=== PATIENT | female | born 1990 | race Caucasian/White ===

== ENCOUNTER 2017-05-28 19:44 | Observation (INO) | payer MEDICAID ==
[~2017-05-28] VITALS: Ht 157.5 cm; Wt 54.0 kg
[2017-05-28 20:23] LABS: DAU SCREEN DISCLAIMER
== END 2017-05-28 23:00 | disposition home or self-care (01) ==
LOC: LDOP 19:44 → LDIP 21:30
PROVIDERS: ADMIT Obstetrics & Gynecology; ATTEND Obstetrics & Gynecology
DX: O62.9 Abnormality of forces of labor, unspecified (principal); Z3A.35 35 weeks gestation of pregnancy
CPT/HCPCS: 59025; 80307; 81003; 87081; 87086; G0378

== ENCOUNTER 2017-06-01 03:32 | Inpatient (IN) | payer MEDICAID ==
[~2017-06-01] VITALS: Ht 157.5 cm; Wt 54.5 kg
[2017-06-01 04:00] VITALS: BP 119/86
[2017-06-01 04:21] VITALS: BP 119/86
[2017-06-01 04:23] LABS: DAU SCREEN DISCLAIMER
[2017-06-01 05:23] LABS: HIV 1&2 ANTIBODY SCREEN Nonreactive (Nonreactive); HIV-1 p24 ANTIGEN Nonreactive (Nonreactive)
[2017-06-01] MEDS ORDERED: BETAMETHASONE 6 MG/ML, 5ML IM ONE (06:41)
[2017-06-01] MEDS: LACTATED RINGERS 1,000 ML IV SCH ×7 (06:45→22:37)
[2017-06-01] MEDS ORDERED: BETAMETHASONE 6 MG/ML, 5ML IM SCH (07:00)
[2017-06-01] MEDS ORDERED: METHADONE 10 MG TABLET ONE (07:58)
[2017-06-01] MEDS: METHADONE 5 MG TABLET PO SCH (08:00)
[2017-06-01] MEDS: METHADONE 10 MG TABLET PO SCH (08:03)
[2017-06-01] MEDS ORDERED: FENTANYL PF 100 MCG/2ML ONE (08:32)
[2017-06-01] MEDS ORDERED: LIDOCAINE 1%, 20ML ONE ×2 (08:33→09:05)
[2017-06-01] MEDS ORDERED: MISOPROSTOL 200 MCG TABLET ONE (08:33)
[2017-06-01] MEDS ORDERED: OXYTOCIN 30U/ 0.9% NaCL 500ML 500 ML IV ONE (08:44)
[2017-06-01] MEDS ORDERED: OXYTOCIN 30U/ 0.9% NaCL 500ML 500 ML ONE ×2 (08:58→21:07)
[2017-06-01] MEDS ORDERED: LACTATED RINGERS 1,000 ML IVBOLUS ONE (09:00)
[2017-06-01] MEDS ORDERED: FENTANYL PF 100 MCG/2ML IVPush PRN (09:00)
[2017-06-01] MEDS ORDERED: FENTANYL PF 100 MCG/2ML IV PRN (09:00)
[2017-06-01] MEDS ORDERED: FENTANYL/BUPIV./NS/PF 250 ML EPIDCONT ONE ×2 (09:00→09:05)
[2017-06-01] MEDS ORDERED: LIDOCAINE/PF 1.5%-EPI 1:200K, 30ML ONE (09:01)
[2017-06-01 09:32] VITALS: BP 126/71
[2017-06-01] MEDS ORDERED: FENTANYL/BUPIV./NS/PF 250 ML EPIDCONT SCH (09:53)
[2017-06-01] MEDS ORDERED: NALOXONE 0.4 MG/ML, 1ML IVPush PRN (10:00)
[2017-06-01] MEDS ORDERED: PREN1TAB60 PO (10:00)
[2017-06-01] MEDS ORDERED: LACTATED RINGERS 1,000 ML IVBOLUS PRN (10:00)
[2017-06-01] MEDS ORDERED: EPHEDRINE 50 MG/ML, 1ML IVPush PRN (10:00)
[2017-06-01] MEDS ORDERED: METH10OR PO (10:21)
[2017-06-01] MEDS ORDERED: NEWBORN KIT ONE (11:39)
[2017-06-01] MEDS ORDERED: OXYTOCIN 30U/ 0.9% NaCL 500ML 500 ML IV PRN (19:00)
[2017-06-01] MEDS ORDERED: IBUPROFEN 600 MG TABLET ONE (19:43)
[2017-06-01] MEDS ORDERED: ACETAMINOPHEN 325 MG TABLET PO PRN (20:30)
[2017-06-01] MEDS ORDERED: ONDANSETRON 2MG/ML, 2ML IV PRN (20:30)
[2017-06-01] MEDS: IBUPROFEN 600 MG TABLET PO PRN (20:30)
[2017-06-01] MEDS ORDERED: MISOPROSTOL 200 MCG TABLET PR PRN (20:30)
[2017-06-01] MEDS ORDERED: METHYLERGONOVINE 0.2 MG/ML IM PRN (20:30)
[2017-06-01] MEDS ORDERED: OXYTOCIN 10 UNITS/ML, 1ML IM PRN (20:30)
[2017-06-01] MEDS: OXYTOCIN 30U/ 0.9% NaCL 500ML 500 ML IV SCH (21:41)
[2017-06-01 22:40] VITALS: BP 111/63
[2017-06-02 01:20] VITALS: BP 114/65
[2017-06-02] MEDS: IBUPROFEN 600 MG TABLET PO PRN ×3 (03:19→16:39)
[2017-06-02] MEDS: OXYTOCIN 30U/ 0.9% NaCL 500ML 500 ML IV SCH (06:14)
[2017-06-02] MEDS: LACTATED RINGERS 1,000 ML IV SCH ×2 (06:37→14:37)
[2017-06-02 07:01] LABS: DIFF TOTAL CELLS COUNTED 100 CELL DIFF
[2017-06-02 07:03] LABS: VERIFY COUNTS? YES
[2017-06-02 07:04] LABS: HYPOCHROMIA 1+
[2017-06-02 07:15] VITALS: BP 104/60
[2017-06-02] MEDS: METHADONE 5 MG TABLET PO SCH (08:00)
[2017-06-02] MEDS: METHADONE 10 MG TABLET PO SCH (08:00)
[2017-06-02] MEDS: PRENATAL VIT/IRON/FA 1 EACH TABLET PO SCH (09:51)
[2017-06-02] MEDS: METHADONE INTENSOL 10 MG/ML ORAL CONC PO SCH (09:51)
[2017-06-02] MEDS: DOCUSATE 100 MG CAPSULE PO PRN (09:52)
[2017-06-02] MEDS ORDERED: DIPH,PERTUSS(ACELL),TET VAC/PF NC IM-VACC ONE (10:48)
[2017-06-02 12:00] VITALS: BP 107/62
[2017-06-02 16:05] VITALS: BP 107/72
[2017-06-02 21:00] VITALS: BP 105/64
[2017-06-03] MEDS: IBUPROFEN 600 MG TABLET PO PRN (00:24)
[2017-06-03] MEDS: DOCUSATE 100 MG CAPSULE PO PRN (00:24)
[2017-06-03 07:34] VITALS: BP 117/76
[2017-06-03] MEDS: PRENATAL VIT/IRON/FA 1 EACH TABLET PO SCH (08:19)
[2017-06-03] MEDS: METHADONE INTENSOL 10 MG/ML ORAL CONC PO SCH (08:19)
[2017-06-03] MEDS ORDERED: IBUP-1222 PO (11:47)
[2017-06-03] MEDS ORDERED: FERR325T20 PO (11:48)
[2017-06-03] MEDS ORDERED: PREN-3 PO (11:48)
== END 2017-06-03 13:03 | disposition home or self-care (01) | DRG 775 ==
LOC: LDOP 03:32 → LDIP 06:44 → OBSVTOIN 08:44 → 2NW 21:46
PROVIDERS: ADMIT Student in an Organized Health Care Education/Training Program; ATTEND Student in an Organized Health Care Education/Training Program
PROC: 10E0XZZ Delivery of Products of Conception, External Approach (ICD-10-PCS; principal; 2017-06-01)
PROC: 3E0R3CZ (ICD-10-PCS; 2017-06-01)
PROC: 00HU33Z Insertion of Infusion Device into Spinal Canal, Percutaneous Approach (ICD-10-PCS; 2017-06-01)
DX: O60.14X0 Preterm labor third trimester with preterm delivery third trimester, not applicable or unspecified (principal); O99.324 Drug use complicating childbirth; F11.10 Opioid abuse, uncomplicated; O76 Abnormality in fetal heart rate and rhythm complicating labor and delivery; O99.02 Anemia complicating childbirth; D64.9 Anemia, unspecified; Z37.0 Single live birth; Z3A.36 36 weeks gestation of pregnancy; Z88.0 Allergy status to penicillin; Z88.1 Allergy status to other antibiotic agents
CPT/HCPCS: 36415; 76805; 80307; 85025; 85027; 86592; 86703; 86762; 86850; 86900; 87340; 87899; G0378; J0702; J3010; J3490; G0435; J2590; J7120

== ENCOUNTER 2018-04-21 00:43 | Emergency (ER) | payer MEDICAID ==
[~2018-04-21] VITALS: Ht 157.5 cm; Wt 43.5 kg
[~2018-04-21 00:43] MED LIST: FERR325T18 PO; IBUP-1222 PO; METH10OR PO; PREN-3 PO; PREN1TAB60 PO
[2018-04-21 00:44] VITALS: BP 112/79
[2018-04-21 01:19] LABS: MICROSCOPIC AUTO
[2018-04-21 01:20] LABS: CULTURE INDICATED? YES
== END 2018-04-21 02:10 | disposition home or self-care (01) ==
LOC: ED 01:04
DX: O20.0 Threatened abortion (principal); N39.0 Urinary tract infection, site not specified; F17.200 Nicotine dependence, unspecified, uncomplicated; Z3A.01 Less than 8 weeks gestation of pregnancy
CPT/HCPCS: 36415; 76830; 81001; 84702; 86901; 87077; 87086; 87186; 99285

== ENCOUNTER 2018-05-01 10:20 | Day surgery (SDC) | payer MEDICAID ==
[~2018-05-01] VITALS: Ht 157.5 cm; Wt 43.5 kg
[2018-05-01] MEDS ORDERED: LACTATED RINGERS 1,000 ML IV SCH (11:03)
[2018-05-01 11:09] VITALS: BP 105/72
[2018-05-01 11:12] LABS: BASOPHILS # (AUTO) 0.05 x10^3/uL (0-0.1); BASOPHILS % (AUTO) 1 % (0-1); EOSINOPHILS # (AUTO) 0.03 x10^3/uL (0-0.4); EOSINOPHILS % (AUTO) 0 % (1-7); LYMPHOCYTES # (AUTO) 2.94 x10^3/uL (1-3.4); LYMPHOCYTES % (AUTO) 28 % (22-44); MD NO; MEAN CORPUSCULAR HEMOGLOBIN 31.6 pg (27.0-34.8); MEAN CORPUSCULAR HGB CONC 34.1 g/dL (32.4-35.8); MEAN CORPUSCULAR VOLUME 92.7 fL (80-100); MEAN PLATELET VOLUME 7.3 fL (7.4-10.4); MONOCYTES # (AUTO) 0.63 x10^3/uL (0.2-0.8); MONOCYTES % (AUTO) 6 % (2-9); NEUTROPHILS % (AUTO) 65 % (42-75); PLATELET COUNT 380 x10^3/uL (130-400); RED BLOOD COUNT 4.47 x10^6/uL (3.82-5.3); RED CELL DISTRIBUTION WIDTH 13.2 % (9.6-15.2)
[2018-05-01] MEDS ORDERED: OXYTOCIN 10 UNITS/ML, 1ML ONE (12:20)
[2018-05-01] MEDS ORDERED: MISOPROSTOL 200 MCG TABLET ONE (12:20)
[2018-05-01] MEDS ORDERED: SILVER NITRATE STICK TP ONE (12:21)
[2018-05-01] MEDS ORDERED: LIDOCAINE/PF 1%, 30ML ONE (12:21)
[2018-05-01] MEDS ORDERED: VASOPRESSIN 20 UNIT/ML, 1ML ONE (12:26)
[2018-05-01] MEDS ORDERED: MIDAZOLAM 1 MG/ML, 2ML ONE (12:29)
[2018-05-01] MEDS ORDERED: FENTANYL PF 250 MCG/5ML ONE (12:29)
[2018-05-01] MEDS ORDERED: PROPOFOL 10 MG/ML, 20ML ONE (12:41)
[2018-05-01] MEDS ORDERED: KETOROLAC 30 MG/1 ML ONE (12:41)
[2018-05-01] MEDS ORDERED: hydrALAzine 20 MG/ML, 1ML IV PRN (13:00)
[2018-05-01] MEDS ORDERED: OXYcodone 5 MG/5 ML ORAL.SOL UDC PO PRN (13:00)
[2018-05-01] MEDS ORDERED: HYDROmorphone 1 MG/ML, 1ML IV PRN (13:00)
[2018-05-01] MEDS ORDERED: ACETAMINOPHEN 325 MG TABLET PO PRN (13:00)
[2018-05-01] MEDS ORDERED: LORazepam 2 MG/ML, 1ML IVPush PRN (13:00)
[2018-05-01] MEDS ORDERED: PROMETHAZINE 25 MG/ML, 1ML IV PRN (13:00)
[2018-05-01] MEDS ORDERED: FENTANYL PF 100 MCG/2ML IV PRN (13:00)
[2018-05-01] MEDS ORDERED: ALBUTEROL SULFATE 2.5 MG/3 ML NPPB PRN (13:00)
[2018-05-01] MEDS ORDERED: MEPERIDINE/PF 25MG/0.5ML IVPush PRN (13:00)
[2018-05-01] MEDS ORDERED: LABETALOL 5MG/ML, 20ML IV PRN (13:00)
[2018-05-01] MEDS ORDERED: ACETAMINOPHEN 650 MG/20.3 ML UDC ONE (13:21)
[2018-05-01] MEDS ORDERED: OXYcodone 5 MG/5 ML ORAL.SOL UDC ONE (13:21)
[2018-05-01] MEDS ORDERED: MEPERIDINE/PF 50 MG/ML ONE (13:42)
== END 2018-05-01 14:50 | disposition home or self-care (01) ==
LOC: OUT 10:20
PROVIDERS: ATTEND Obstetrics & Gynecology
DX: O03.9 Complete or unspecified spontaneous abortion without complication (principal); F41.9 Anxiety disorder, unspecified; F32.9 Major depressive disorder, single episode, unspecified; Z3A.01 Less than 8 weeks gestation of pregnancy
CPT/HCPCS: 36415; 59812; 85025; 86850; 86900; 88305; J1885; J2175; J2250; J2704; J3010; J3490; J7120; J2590

== ENCOUNTER 2018-09-05 20:25 | Emergency (ER) | payer MEDICAID ==
[~2018-09-05] VITALS: Ht 157.5 cm; Wt 45.0 kg
[2018-09-05] MEDS ORDERED: METH40TA3 PO (20:45)
[2018-09-05] MEDS ORDERED: FLUO20CA19 PO (20:45)
[2018-09-05] MEDS ORDERED: ONDANSETRON ODT 4 MG ONE (21:13)
[2018-09-05] MEDS ORDERED: ONDANSETRON ODT 4 MG PO ONE (21:30)
[2018-09-05 22:00] VITALS: BP 121/74
== END 2018-09-05 22:09 | disposition home or self-care (01) ==
LOC: ED 21:20
DX: R06.00 Dyspnea, unspecified (principal)
CPT/HCPCS: 93005; 99283; Q0162

== ENCOUNTER 2021-06-13 17:25 | Emergency (ER) | payer MEDICAID ==
[~2021-06-13] VITALS: Ht 157.5 cm; Wt 55.0 kg
[~2021-06-13 17:25] MED LIST changes: +FLUO20CA19 PO; +METH40TA3 PO
[2021-06-13 19:24] LABS: MICROSCOPIC NOT IND
[2021-06-13 19:33] LABS: BASOPHILS % (AUTO) 1 % (0-1); EOSINOPHILS % (AUTO) 3 % (1-7); LYMPHOCYTES % (AUTO) 33 % (22-44); MEAN CORPUSCULAR HEMOGLOBIN 30.8 pg (27.0-34.8); MEAN PLATELET VOLUME 7.7 fL (7.4-10.4); MONOCYTES % (AUTO) 8 % (2-9); NEUTROPHILS % (AUTO) 55 % (42-75); PLATELET COUNT 366 x10^3/uL (130-400); RED BLOOD COUNT 4.56 x10^6/uL (3.82-5.3); RED CELL DISTRIBUTION WIDTH 13.1 % (9.6-15.2)
[2021-06-13 19:46] LABS: ALANINE AMINOTRANSFERASE 28 U/L (12-78); ALBUMIN 4.1 g/dL (3.4-5.0); ANION GAP 8 mmol/L (5-15); CALCIUM 9.1 mg/dL (8.5-10.1); CHLORIDE 106 mmol/L (98-107); CREATININE 0.57 mg/dL (0.55-1.02)
[2021-06-13 20:03] LABS: ALKALINE PHOSPHATASE 59 U/L (45-117); BILIRUBIN,TOTAL 0.2 mg/dL (0.2-1.0); TOTAL PROTEIN 7.5 g/dL (6.4-8.2)
--- NOTE | 2021-06-13 20:05 | NUR ---
client development director: Pt ambulatory to room from lobby at this time.
[2021-06-13 21:28] VITALS: BP 111/66
== END 2021-06-13 21:31 | disposition home or self-care (01) ==
LOC: ED 21:00
DX: O26.891 Other specified pregnancy related conditions, first trimester (principal); R10.2 Pelvic and perineal pain; F17.200 Nicotine dependence, unspecified, uncomplicated; Z3A.08 8 weeks gestation of pregnancy
CPT/HCPCS: 36415; 76801; 80053; 81003; 84702; 85025; 99284